=== PATIENT | male | born 1950 | race Caucasian/White ===

== ENCOUNTER 2019-11-26 12:17 | Emergency (ER) | payer BC ==
[~2019-11-26] VITALS: Ht 193 cm; Wt 90.7 kg
[2019-11-26 12:25] VITALS: BP_SYST 148
[2019-11-26] MEDS ORDERED: BACITRACIN 1 GM OINT TP ONE (12:30)
[2019-11-26] MEDS ORDERED: DIPH-TET-PERTUS Vaccine 0.5 ML VIAL (ADACEL) I.M. ONE (12:30)
[2019-11-26] MEDS ORDERED: LIDOCAINE 1% 10 MG/ML, 20 ML MDV SUBCUT ONE (12:30)
--- NOTE | 2019-11-26 13:30 | NUR ---
Patient to ER bed 4 to gown for evaluation. Side rails up.
--- NOTE | 2019-11-26 13:40 | NUR ---
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 He expressed concern over cut being deep and located over the knuckle. He does not complain of pain at this time and VSS.
--- NOTE | 2019-11-26 13:45 | NUR ---
ER at bedside examining patient.
[2019-11-26 14:53] VITALS: BP_SYST 148
--- NOTE | 2019-11-26 14:57 | NUR ---
Patient given written and verbal discharge instructions and verbalizes understanding. ER MD discussed with patient the results and treatment provided. Patient in stable condition. ID arm band removed. IV catheter removed intact and dressing applied, no active bleeding. Rx of Bacitracin and Tylenol given. Patient educated on pain management and to follow up with PMD. Pain Scale . Opportunity for questions provided and answered. Medication side effect fact sheet provided.
== END 2019-11-26 14:57 | disposition home or self-care (01) ==
LOC: SED 12:17
DX: S61.212A Laceration without foreign body of right middle finger without damage to nail, initial encounter (principal); W29.8XXA Contact with other powered hand tools and household machinery, initial encounter; Y93.89 Activity, other specified; Y92.89 Other specified places as the place of occurrence of the external cause; Y99.8 Other external cause status
CPT/HCPCS: 90715; 99283